=== PATIENT | male | born 1940 | race American Indian/Alaskan Native ===

== ENCOUNTER 2020-05-20 06:13 | Observation (INO) | payer MEDICARE ==
[2020-05-14 10:08] LABS: Hematocrit 38.2 % (35.5-45.6); Hemoglobin 12.6 gm/dl (11.8-15.2); Mean Corpuscular HGB Conc 33 % (32-34); Mean Corpuscular Volume 84 fl (84-94); Platelet Count 181 K/mm3 (140-440); Red Blood Count 4.57 M/mm3 (3.65-5.03); Red Cell Distribution Width 16.1 % (13.2-15.2)
[2020-05-14 10:25] LABS: Alanine Aminotransferase 13 units/L (7-56); Albumin 3.9 g/dL (3.9-5); BUN/Creatinine Ratio 13; Blood Urea Nitrogen 13 mg/dL (9-20); Calcium 8.6 mg/dL (8.4-10.2); Hemolysis Index 0
--- NOTE | 2020-05-14 10:28 | Anesthesia Consultation ---
Anesthesia Consult and Med Hx Date of service: 05/20/20 - Airway Anesthetic Teeth Evaluation: Dentures (full upper and lower) ROM Head & Neck: Adequate Mental/Hyoid Distance: Adequate Mallampati Class: Class III Intubation Access Assessment: Possibly Difficult - Pulmonary Exam CTA: Yes - Cardiac Exam Cardiac Exam: RRR - Pre-Operative Health Status ASA Pre-Surgery Classification: ASA3 Proposed Anesthetic Plan: General - Pulmonary Hx Smoking: Yes (quit 30yrs ago) Hx Respiratory Symptoms: No Hx Sleep Apnea: No - Cardiovascular System Hx Hypertension: Yes Hx Heart Attack/AMI: No Hx Percutaneous Transluminal Coronary Angioplasty (PTCA): No Hx Cardia Arrhythmia: No Hx Peripheral Vascular Disease: No (hx RLE DVT s/p IVC filter; off coumadin x several years) - Central Nervous System CVA: No (hx SDH 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
[~2020-05-20 06:13] MED LIST: LACTATED RINGERS 1,000 ML IV SCH
[2020-05-20] MEDS ORDERED: BACTERIOSTATIC SODIUM CHLORIDE 0.9% 30 ML VIAL INFILTRATI ONE (06:34)
--- NOTE | 2020-05-20 06:45 | Anesthesia Day of Surgery ---
Anesthesia Day of Surgery - Day of Surgery Patient Examined: Yes Patient H&P Reviewed: Yes Patient is NPO: Yes
[2020-05-20] MEDS ORDERED: GENTAMICIN/NS 80 MG/100 ML 100 ML IV SCH (07:30)
[2020-05-20] MEDS ORDERED: fentaNYL 100 MCG/2 ML INJ ONE (07:37)
[2020-05-20] MEDS ORDERED: propofoL 200 MG/20 ML VIAL IV ONE (07:37)
[2020-05-20] MEDS ORDERED: ePHEDrine SULFATE 50 MG/1 ML INJ ONE (07:54)
[2020-05-20] MEDS ORDERED: WATER FOR IRRIG STERILE 2000 ML IR ONE (08:00)
[2020-05-20] MEDS ORDERED: HYDROcodone/ACETAMINOPHEN 5-325 MG TAB PO PRN (08:25)
[2020-05-20] MEDS ORDERED: ONDANSETRON 4 MG/2 ML INJ ONE (09:04)
[2020-05-20] MEDS ORDERED: LIDOCAINE MPF (2%) 20 MG/1 ML VIAL 5 ML ONE (09:04)
[2020-05-20] MEDS ORDERED: MORPHINE 4 MG/1 ML INJ IV PRN (09:20)
[2020-05-20] MEDS ORDERED: NALOXONE 0.4 MG/1 ML INJ IV PRN (09:20)
--- NOTE | 2020-05-20 09:20 | Short Stay Summary ---
Short Stay Documentation Date of service: 05/20/20 - History H&P: obtained from office - Allergies and Medications Current Medications: Allergies lisinopril Adverse Reaction (Unknown, Verified 05/14/20 10:30) Unknown Penicillins Adverse Reaction (Verified 05/14/20 10:30) Rash sulfamethoxazole [From Sulfamethoxazole-Trimethoprim] Adverse Reaction (Verified 05/14/20 10:30) Rash trimethoprim [From Sulfamethoxazole-Trimethoprim] Adverse Reaction (Verified 05/14/20 10:30) Rash vancomycin Adverse Reaction (Verified 05/14/20 10:30) Rash Home Medications Medication Instructions Recorded Confirmed Last Taken Type Centrum Silver Men Tablet 1 tab PO DAILY 05/14/20 05/14/20 05/19/20 History Cholecalciferol (Vitamin D3) 1 cap PO DAILY 05/14/20 05/14/20 05/19/20 History Cyanocobalamin (Vitamin B-12) 1 tab PO DAILY 05/14/20 05/14/20 05/19/20 History Diclofenac-Misoprost 75-200 Tb 1 tab PO BID 05/14/20 05/14/20 05/19/20 History Docusate Calcium 100 mg PO DAILY 05/14/20 05/14/20 05/19/20 History Finasteride [Proscar] 5 mg PO QDAY 05/14/20 05/14/20 05/19/20 History Hydrochlorothiazide 25 mg PO DAILY 05/14/20 05/14/20 05/19/20 History Levothyroxine 0.15 mg PO DAILY 05/14/20 05/14/20 05/20/20 05:30 History Linzess 145 tab PO QDAY 05/14/20 05/14/20 05/19/20 History Potassium Chloride 1 tab PO BID 05/14/20 05/14/20 05/19/20 History Tamsulosin 0.4 mg PO DAILY 05/14/20 05/14/20 05/19/20 History amLODIPine 10 mg PO DAILY 05/14/20 05/14/20 05/20/20 05:30 History Active Medications Hydrocodone Bitart/Acetaminophen (Hydrocodone/Acetaminophen 5-325 Mg Tab) 2 each PO ONCE PRN PRN Reason: Pain, Moderate (4-6) Stop: 05/20/20 18:00 Lactated Ringer's (Lactated Ringers) 1,000 mls @ 100 mls/hr IV DIRECT NICA Stop: 05/20/20 23:59 Last Admin: 05/20/20 06:55 Dose: 100 mls/hr Documented by: Gentamicin Sulfate/Sodium Chloride (Gentamicin/Ns 80 Mg/100 Ml) 100 mls @ 200 mls/hr IV ONCE NICA Stop: 05/20/20 21:00 - Brief post op/procedure progress note Date of procedure: 05/20/20 Pre-op diagnosis: BPH, RETENTION Post-op diagnosis: same Procedure: CYSTO, TUR BLADDER NECK, GREENLIGHT LASER OF PROSTATE Anesthesia: YEHUDA Surgeon: RAVI HINTON Estimated blood loss: minimal Pathology: list (PROSTATE CHIPS) Specimen disposition: to lab Condition: stable - Hospital course Hospital course: DEVAUGHN BELL,POST OP INFO ON CHART - Disposition Disposition: DC-01 TO HOME OR SELFCARE Short Stay Discharge Plan Follow up with: JACKI MCGHEE [Other] - 7 Days
[2020-05-20] MEDS ORDERED: SODIUM CHLORIDE 0.9% 1000 ML 1,000 ML IV SCH (09:30)
[2020-05-20] MEDS ORDERED: POTASSIUM CHLORIDE PO SCH (10:00)
[2020-05-20] MEDS ORDERED: NON-FORMULARY EACH (Amlodipine 10 MG) PO SCH (10:00)
[2020-05-20] MEDS ORDERED: DOCUSATE CALCIUM 100 MG PO SCH (10:00)
[2020-05-20] MEDS ORDERED: NON-FORMULARY EACH (Hydrochlorothiazide 25 MG) PO SCH (10:00)
[2020-05-20] MEDS ORDERED: LINZESS PO SCH (10:00)
[2020-05-20] MEDS ORDERED: LEVOTHYROXINE 0.15 MG PO SCH (10:00)
--- NOTE | 2020-05-20 10:09 | XRay Report ---
Technique: Intraoperative fluoroscopic guidance was provided. Fluoroscopy time: 0.1 minutes. Fluoroscopy images: 2. Findings/Impression: Intraoperative fluoroscopic guidance for greenlight prostatectomy. Please see pr ocedure report for further details. Signer Name: Aden Cedeno MD Signed: 05/20/2020 10:04 AM Workstation Name: [id number]
[2020-05-20] MEDS ORDERED: SODIUM CHLORIDE IRRI 1000 ML 1,000 ML IR ONE (10:24)
[2020-05-20] MEDS: amLODIPine 10 MG TAB PO SCH ×2 (12:01→12:04)
[2020-05-20] MEDS: hydroCHLOROthiazide 25 MG TAB PO SCH (12:01)
[2020-05-20] MEDS: DOCUSATE SODIUM 100 MG CAP PO SCH (12:01)
[2020-05-20] MEDS: FINASTERIDE 5 MG TAB PO SCH (12:02)
--- NOTE | 2020-05-20 13:02 | Post Anesthesia Evaluation ---
- Post Anesthesia Evaluation Patient Participated: Yes Airway Patent: Yes Stable Respiratory Function: Yes Nausea/Vomiting: No Temp > 96.8F: Yes Pain Manageable: Yes Adequeate Hydration: Yes Anesthesia Complications: No
[2020-05-20] MEDS: HYDROcodone/ACETAMINOPHEN 5-325 MG TAB PO PRN ×2 (13:41→23:53)
--- NOTE | 2020-05-20 15:50 | Operative Report ---
PREOPERATIVE DIAGNOSES: Benign prostatic hypertrophy, urinary retention. POSTOPERATIVE DIAGNOSES: Benign prostatic hypertrophy, urinary retention. PROCEDURES: Cystoscopy, transurethral resection of bladder neck (median lobe), GreenLight laser ablation of the prostate. SURGEON: Jaspal Cavanaugh MD ANESTHESIA: General. ESTIMATED BLOOD LOSS: Minimal. FLUIDS: Crystalloid. COMPLICATIONS: No complications. INDICATIONS: This 79-year-old gentleman known to our service. Due to COVID, he did not want to come into the hospital, developed significant voiding dysfunction, was seen by Dr. Salinas in our group, underwent a UroLift procedure, developed retention. Despite medical management in additional to the UroLift, could not void spontaneously. We discussed ____. He was interested in that versus TURP or GreenLight. We did ____, was unable to urinate afterwards as well. At this point, he wants relief. Discussed TURP, GreenLight. He and his agreed to proceed. DESCRIPTION OF PROCEDURE: The patient was taken to the operative suite, placed in a supine position. After adequate general anesthesia, placed in a dorsal lithotomy position, prepped and draped in a sterile fashion. Pancystourethroscopy was performed with a 22-Afghan Storz cystoscope, no urethral abnormalities. Prostate displayed significant trilobar obstruction. His bladder significant trabeculation, unable to visualize the ureteral orifices bilaterally. Next, using a 27-Afghan resectoscope and loop, transurethral resection of the large median lobe was performed without difficulty. Chips were evacuated out with the TV Volume Wizard App evacuator, did see somewhat of a channel at this point, however, we then used the GreenLight ____, starting at 80 chavez going up to 100 chavez. Laser ablation of the lateral lobes were performed as well as coagulation of the median lobe as well. The patient tolerated the procedure well. Chips were evacuated out. A 24-Afghan 3-way catheter to Sharp's drip was placed. Rectal exam was benign. He was extubated and taken to recovery room. JOB# [id number] C/NTS
[2020-05-20] MEDS: GENTAMICIN/NS 80 MG/100 ML 100 ML IV SCH ×2 (17:26→23:41)
[2020-05-20] MEDS: SODIUM CHLORIDE 0.9% IRRIG SOLN 2000 ML IR SCH ×2 (20:52→23:43)
[2020-05-20] MEDS ORDERED: ZOLPIDEM 5 MG TAB PO PRN (21:00)
[2020-05-20] MEDS: POTASSIUM CHLORIDE ER 10 MEQ TAB PO SCH (23:41)
[2020-05-21] MEDS: SODIUM CHLORIDE 0.9% IRRIG SOLN 2000 ML IR SCH ×2 (02:27→05:30)
[2020-05-21] MEDS ORDERED: LEVOTHYROXINE 150 MCG TAB PO SCH (06:00)
--- NOTE | 2020-05-21 08:14 | Progress Note ---
Assessment and Plan nicolás heard home with cath Subjective Date of service: 05/21/20 Principal diagnosis: bph Objective - Constitutional Vitals: Vital Signs - 12hr 05/20/20 05/21/20 05/21/20 22:29 05:02 07:27 Temperature 98.3 F 98.6 F 98.0 F Pulse Rate 80 76 85 Respiratory 18 18 20 Rate Blood Pressure 137/60 117/49 166/78 O2 Sat by Pulse 96 91 97 Oximetry General appearance: Present: no acute distress - Neck Neck: supple - Respiratory Respiratory effort: normal Extremities: no ischemia - Gastrointestinal General gastrointestinal: Present: non-tender - Labs CBC & Chem 7: 05/14/20 09:32 05/14/20 09:32 Labs: Abnormal lab results 05/20/20 Range/Units 09:35 POC Glucose 128 H (70-105) mg/dL Medications & Allergies - Medications Allergies/Adverse Reactions: Allergies lisinopril Adverse Reaction (Unknown, Verified 05/14/20 10:30) Unknown Penicillins Adverse Reaction (Verified 05/14/20 10:30) Rash sulfamethoxazole [From Sulfamethoxazole-Trimethoprim] Adverse Reaction (Verified 05/14/20 10:30) Rash trimethoprim [From Sulfamethoxazole-Trimethoprim] Adverse Reaction (Verified 05/14/20 10:30) Rash vancomycin Adverse Reaction (Verified 05/14/20 10:30) Rash Home Medications: Home Medications Medication Instructions Recorded Confirmed Last Taken Type Centrum Silver Men Tablet 1 tab PO DAILY 05/14/20 05/14/20 05/19/20 History Cholecalciferol (Vitamin D3) 1 cap PO DAILY 05/14/20 05/14/20 05/19/20 History Cyanocobalamin (Vitamin B-12) 1 tab PO DAILY 05/14/20 05/14/20 05/19/20 History Diclofenac-Misoprost 75-200 Tb 1 tab PO BID 05/14/20 05/14/20 05/19/20 History Docusate Calcium 100 mg PO DAILY 05/14/20 05/14/20 05/19/20 History Finasteride [Proscar] 5 mg PO QDAY 05/14/20 05/14/20 05/19/20 History Hydrochlorothiazide 25 mg PO DAILY 05/14/20 05/14/20 05/19/20 History Levothyroxine 0.15 mg PO DAILY 05/14/20 05/14/20 05/20/20 05:30 History Linzess 145 tab PO QDAY 05/14/20 05/14/20 05/19/20 History Potassium Chloride 1 tab PO BID 05/14/20 05/14/20 05/19/20 History Tamsulosin 0.4 mg PO DAILY 05/14/20 05/14/20 05/19/20 History amLODIPine 10 mg PO DAILY 05/14/20 05/14/20 05/20/20 05:30 History Active Medications: Generic Name Dose Route Start Last Admin Trade Name Freq PRN Reason Stop Dose Admin Hydrocodone Bitart/Acetaminophen 2 each 05/20/20 09:20 05/20/20 23:53 Hydrocodone/Acetaminophen 5-325 Mg Tab PO 2 each Q4H PRN Administration Pain, Moderate (4-6) Amlodipine Besylate 10 mg 05/20/20 10:00 05/20/20 12:04 Amlodipine 10 Mg Tab PO Not Given DAILY [facility] Docusate Sodium 100 mg 05/20/20 10:00 05/20/20 12:01 Docusate Sodium 100 Mg Cap PO 100 mg DAILY NICA Administration Finasteride 5 mg 05/20/20 10:00 05/20/20 12:02 Finasteride 5 Mg Tab PO Not Given QDAY [facility] Hydrochlorothiazide 25 mg 05/20/20 10:00 05/20/20 12:01 Hydrochlorothiazide 25 Mg Tab PO 25 mg QDAY NICA Administration Sodium Chloride 1,000 mls @ 100 mls/hr 05/20/20 09:30 Nacl 0.9% 1000 Ml IV DIRECT NICA Levothyroxine Sodium 150 mcg 05/21/20 06:00 05/21/20 05:27 Levothyroxine 150 Mcg Tab PO 150 mcg DAILY@0600 [facility] Administration Miscellaneous Medication 145 tab 05/20/20 10:00 Linzess PO QDAY NICA Morphine Sulfate 4 mg 05/20/20 09:20 Morphine 4 Mg/1 Ml Inj IV Q4H PRN Pain , Severe (7-10) Naloxone HCl 0.1 mg 05/20/20 09:20 Naloxone 0.4 Mg/1 Ml Inj IV Q2MIN PRN Res Rate </= 8 or 02 SAT < 92% Potassium Chloride 10 meq 05/20/20 22:00 05/20/20 23:41 Potassium Chloride Er 10 Meq Tab PO 10 meq BID NICA Administration Sodium Chloride 2,000 ml 05/20/20 10:00 05/21/20 05:30 Sodium Chloride 0.9% Irrig Soln 2000 Ml IR 2,000 ml DIRECT NICA Administration Zolpidem Tartrate 5 mg 05/20/20 21:00 05/20/20 23:41 Zolpidem 5 Mg Tab PO 5 mg QHS PRN Administration Sleep
--- NOTE | 2020-05-21 08:15 | Discharge Summary ---
Short Stay Discharge Plan Activity: other (no straining ) Diet: low cholesterol, low salt Special Instructions: other (inc fluids ) Durable Medical Equipment Needed Upon Discharge: other (each zaidi care ) Follow up with: JACKI MCGHEE [Other] - 7 Days RAVI HINTON MD [Staff Physician] - 7 Days
--- NOTE | 2020-05-21 08:38 | Consultation ---
History of Present Illness - Reason for Consult Consult date: 05/20/20 - History of Present Illness 79-year-old male presents with significant past medical history of hypertension, BPH and urinary retention. Patient is s/p cystoscopy with TUR bladder neck, greenlight laser of prostate. Urology asked for consultation for management of hypertension during overnight hospital stay. Patient denies any chest pain or shortness of breath. Past History Past Medical History: hypertension Past Surgical History: No surgical history Social history: no significant social history Family history: no significant family history Medications and Allergies Allergies Allergy/AdvReac Type Severity Reaction Status Date / Time lisinopril AdvReac Unknown Unknown Verified 05/14/20 10:30 Penicillins AdvReac Rash Verified 05/14/20 10:30 sulfamethoxazole AdvReac Rash Verified 05/14/20 10:30 [From Sulfamethoxazole-Trimethoprim] trimethoprim AdvReac Rash Verified 05/14/20 10:30 [From Sulfamethoxazole-Trimethoprim] vancomycin AdvReac Rash Verified 05/14/20 10:30 Home Medications Medication Instructions Recorded Confirmed Last Taken Type Centrum Silver Men Tablet 1 tab PO DAILY 05/14/20 05/14/20 05/19/20 History Cholecalciferol (Vitamin D3) 1 cap PO DAILY 05/14/20 05/14/20 05/19/20 History Cyanocobalamin (Vitamin B-12) 1 tab PO DAILY 05/14/20 05/14/20 05/19/20 History Diclofenac-Misoprost 75-200 Tb 1 tab PO BID 05/14/20 05/14/20 05/19/20 History Docusate Calcium 100 mg PO DAILY 05/14/20 05/14/20 05/19/20 History Finasteride [Proscar] 5 mg PO QDAY 05/14/20 05/14/20 05/19/20 History Hydrochlorothiazide 25 mg PO DAILY 05/14/20 05/14/20 05/19/20 History Levothyroxine 0.15 mg PO DAILY 05/14/20 05/14/20 05/20/20 05:30 History Linzess 145 tab PO QDAY 05/14/20 05/14/20 05/19/20 History Potassium Chloride 1 tab PO BID 05/14/20 05/14/20 05/19/20 History Tamsulosin 0.4 mg PO DAILY 05/14/20 05/14/20 05/19/20 History amLODIPine 10 mg PO DAILY 05/14/20 05/14/20 05/20/20 05:30 History Active Meds: Active Medications Hydrocodone Bitart/Acetaminophen (Hydrocodone/Acetaminophen 5-325 Mg Tab) 2 each PO Q4H PRN PRN Reason: Pain, Moderate (4-6) Last Admin: 05/20/20 23:53 Dose: 2 each Documented by: Amlodipine Besylate (Amlodipine 10 Mg Tab) 10 mg PO DAILY [facility] Last Admin: 05/20/20 12:04 Dose: Not Given Documented by: Docusate Sodium (Docusate Sodium 100 Mg Cap) 100 mg PO DAILY [facility] Last Admin: 05/20/20 12:01 Dose: 100 mg Documented by: Finasteride (Finasteride 5 Mg Tab) 5 mg PO QDAY [facility] Last Admin: 05/20/20 12:02 Dose: Not Given Documented by: Hydrochlorothiazide (Hydrochlorothiazide 25 Mg Tab) 25 mg PO QDAY [facility] Last Admin: 05/20/20 12:01 Dose: 25 mg Documented by: Sodium Chloride (Nacl 0.9% 1000 Ml) 1,000 mls @ 100 mls/hr IV DIRECT [facility] Levothyroxine Sodium (Levothyroxine 150 Mcg Tab) 150 mcg PO DAILY@0600 [facility] Last Admin: 05/21/20 05:27 Dose: 150 mcg Documented by: Miscellaneous Medication (Linzess) 145 tab PO QDAY [facility] Morphine Sulfate (Morphine 4 Mg/1 Ml Inj) 4 mg IV Q4H PRN PRN Reason: Pain , Severe (7-10) Naloxone HCl (Naloxone 0.4 Mg/1 Ml Inj) 0.1 mg IV Q2MIN PRN PRN Reason: Res Rate </= 8 or 02 SAT < 92% Potassium Chloride (Potassium Chloride Er 10 Meq Tab) 10 meq PO BID [facility] Last Admin: 05/20/20 23:41 Dose: 10 meq Documented by: Sodium Chloride (Sodium Chloride 0.9% Irrig Soln 2000 Ml) 2,000 ml IR DIRECT NICA Last Admin: 05/21/20 05:30 Dose: 2,000 ml Documented by: Zolpidem Tartrate (Zolpidem 5 Mg Tab) 5 mg PO QHS PRN PRN Reason: Sleep Last Admin: 05/20/20 23:41 Dose: 5 mg Documented by: Review of Systems All systems: negative Exam - Constitutional Vitals: Temp Pulse Resp BP Pulse Ox 98.0 F 85 20 166/78 97 05/21/20 07:27 05/21/20 07:27 05/21/20 07:27 05/21/20 07:27 05/21/20 07:27 General appearance: Present: no acute distress, well-nourished - EENT Eyes: Present: PERRL ENT: hearing intact, clear oral mucosa - Neck Neck: Present: supple, normal ROM - Respiratory Respiratory effort: normal Respiratory: bilateral: CTA - Cardiovascular Heart Sounds: Present: S1 & S2. Absent: rub, click - Extremities Extremities: pulses symmetrical, No edema Peripheral Pulses: within normal limits - Abdominal General gastrointestinal: Present: soft, non-tender, non-distended, normal bowel sounds Male genitourinary: Present: normal - Integumentary Integumentary: Present: clear, warm, dry - Musculoskeletal Musculoskeletal: gait normal, strength equal bilaterally - Psychiatric Psychiatric: appropriate mood/affect, intact judgment & insight - Neurologic Neurologic: CNII-XII intact, moves all extremities Results - Labs CBC & Chem 7: 05/14/20 09:32 05/14/20 09:32 Labs: Abnormal lab results 05/20/20 Range/Units 09:35 POC Glucose 128 H (70-105) mg/dL Assessment and Plan BPH Urinary retention Hypertension 05/20/2020. Patient is status post cystoscopy, transurethral resection of bladder neck. Continue amlodipine for blood pressure. Monitor on telemetry. Anticipate discharge in a.m.
[2020-05-21] MEDS: DOCUSATE SODIUM 100 MG CAP PO SCH (10:43)
[2020-05-21] MEDS: amLODIPine 10 MG TAB PO SCH (10:43)
[2020-05-21] MEDS: hydroCHLOROthiazide 25 MG TAB PO SCH (10:43)
[2020-05-21] MEDS: FINASTERIDE 5 MG TAB PO SCH (10:43)
[2020-05-21] MEDS: POTASSIUM CHLORIDE ER 10 MEQ TAB PO SCH (10:43)
[2020-05-21 11:46] VITALS: BP 144/60
--- NOTE | 2020-05-21 11:46 | Progress Note ---
Assessment and Plan Assessment and plan: BPH Urinary retention Hypertension 05/20/2020. Patient is status post cystoscopy, transurethral resection of bladder neck. Continue amlodipine for blood pressure. Monitor on telemetry. Anticipate discharge in a.m. 05/21/2020. Patient reportedly to discharge today. We will sign off. History Interval history: No new issues overnight. Hospitalist Physical - Constitutional Vitals: Temp Pulse Resp BP Pulse Ox 98.4 F 78 18 144/60 95 05/21/20 10:52 05/21/20 10:52 05/21/20 10:52 05/21/20 10:52 05/21/20 10:52 General appearance: Present: no acute distress, well-nourished - EENT Eyes: Present: PERRL, EOM intact ENT: hearing intact, clear oral mucosa, dentition normal - Neck Neck: Present: supple, normal ROM - Respiratory Respiratory effort: normal Respiratory: bilateral: CTA - Cardiovascular Rhythm: regular Heart Sounds: Present: S1 & S2. Absent: gallop, rub - Extremities Extremities: no ischemia, No edema, Full ROM - Abdominal General gastrointestinal: soft, non-tender, non-distended, normal bowel sounds - Integumentary Integumentary: Present: clear, warm, dry - Neurologic Neurologic: CNII-XII intact, moves all extremities Results - Labs CBC & Chem 7: 05/14/20 09:32 05/14/20 09:32 Labs: Laboratory Last Values WBC 3.7 K/mm3 (4.5-11.0) L 05/14/20 09:32 RBC 4.57 M/mm3 (3.65-5.03) 05/14/20 09:32 Hgb 12.6 gm/dl (11.8-15.2) 05/14/20 09:32 Hct 38.2 % (35.5-45.6) 05/14/20 09:32 MCV 84 fl (84-94) 05/14/20 09:32 MCH 28 pg (28-32) 05/14/20 09:32 MCHC 33 % (32-34) 05/14/20 09:32 RDW 16.1 % (13.2-15.2) H 05/14/20 09:32 Plt Count 181 K/mm3 (140-440) 05/14/20 09:32 Sodium 137 mmol/L (137-145) 05/14/20 09:32 Potassium 4.0 mmol/L (3.6-5.0) 05/14/20 09:32 Chloride 100.5 mmol/L (98-107) 05/14/20 09:32 Carbon Dioxide 29 mmol/L (22-30) 05/14/20 09:32 Anion Gap 12 mmol/L 05/14/20 09:32 BUN 13 mg/dL (9-20) 05/14/20 09:32 Creatinine 1.0 mg/dL (0.8-1.3) 05/14/20 09:32 Estimated GFR > 60 ml/min 05/14/20 09:32 BUN/Creatinine Ratio 13 % 05/14/20 09:32 Glucose 114 mg/dL (75-100) H 05/14/20 09:32 POC Glucose 128 mg/dL (70-105) H 05/20/20 09:35 Calcium 8.6 mg/dL (8.4-10.2) 05/14/20 09:32 Magnesium 1.70 mg/dL (1.7-2.3) 05/21/20 02:25 Total Bilirubin 0.30 mg/dL (0.1-1.2) 05/14/20 09:32 AST 20 units/L (5-40) 05/14/20 09:32 ALT 13 units/L (7-56) 05/14/20 09:32 Alkaline Phosphatase 126 units/L (35-129) 05/14/20 09:32 Total Protein 6.7 g/dL (6.3-8.2) 05/14/20 09:32 Albumin 3.9 g/dL (3.9-5) 05/14/20 09:32 Albumin/Globulin Ratio 1.4 % 05/14/20 09:32 Coronavirus (PCR) Negative (Negative) 05/14/20 10:05 Blood Type O POSITIVE 05/20/20 06:55 Antibody Screen Negative 05/20/20 06:55 Vaughan/IV: Voiding Method Indwelling Catheter Active Medications - Current Medications Current Medications: Generic Name Dose Route Start Last Admin Trade Name Freq PRN Reason Stop Dose Admin Hydrocodone Bitart/Acetaminophen 2 each 05/20/20 09:20 05/20/20 23:53 Hydrocodone/Acetaminophen 5-325 Mg Tab PO 2 each Q4H PRN Administration Pain, Moderate (4-6) Amlodipine Besylate 10 mg 05/20/20 10:00 05/21/20 10:43 Amlodipine 10 Mg Tab PO 10 mg DAILY NICA Administration Docusate Sodium 100 mg 05/20/20 10:00 05/21/20 10:43 Docusate Sodium 100 Mg Cap PO 100 mg DAILY NICA Administration Finasteride 5 mg 05/20/20 10:00 05/21/20 10:43 Finasteride 5 Mg Tab PO 5 mg QDAY NICA Administration Hydrochlorothiazide 25 mg 05/20/20 10:00 05/21/20 10:43 Hydrochlorothiazide 25 Mg Tab PO 25 mg QDAY NICA Administration Sodium Chloride 1,000 mls @ 100 mls/hr 05/20/20 09:30 Nacl 0.9% 1000 Ml IV DIRECT NICA Levothyroxine Sodium 150 mcg 05/21/20 06:00 05/21/20 05:27 Levothyroxine 150 Mcg Tab PO 150 mcg DAILY@0600 N[facility] Administration Miscellaneous Medication 145 tab 05/20/20 10:00 Linzess PO QDAY N[facility] Morphine Sulfate 4 mg 05/20/20 09:20 Morphine 4 Mg/1 Ml Inj IV Q4H PRN Pain , Severe (7-10) Naloxone HCl 0.1 mg 05/20/20 09:20 Naloxone 0.4 Mg/1 Ml Inj IV Q2MIN PRN Res Rate </= 8 or 02 SAT < 92% Potassium Chloride 10 meq 05/20/20 22:00 05/21/20 10:43 Potassium Chloride Er 10 Meq Tab PO 10 meq BID NICA Administration Sodium Chloride 2,000 ml 05/20/20 10:00 05/21/20 05:30 Sodium Chloride 0.9% Irrig Soln 2000 Ml IR 2,000 ml DIRECT NICA Administration Zolpidem Tartrate 5 mg 05/20/20 21:00 05/20/20 23:41 Zolpidem 5 Mg Tab PO 5 mg QHS PRN Administration Sleep
== END 2020-05-21 15:00 | disposition home or self-care (01) ==
LOC: OR 06:13 → 3B-SURG 09:20
PROVIDERS: ADMIT Urology; ATTEND Urology
DX: N40.1 Benign prostatic hyperplasia with lower urinary tract symptoms (principal); Z20.822 Contact with and (suspected) exposure to COVID-19; R33.8 Other retention of urine; I10 Essential (primary) hypertension; E03.9 Hypothyroidism, unspecified; M19.90 Unspecified osteoarthritis, unspecified site; Z71.3 Dietary counseling and surveillance; Z87.440 Personal history of urinary (tract) infections; Z96.651 Presence of right artificial knee joint; Z98.890 Other specified postprocedural states; Z79.82 Long term (current) use of aspirin; Z79.899 Other long term (current) drug therapy
CPT/HCPCS: 36415; 52648; 74018; 80053; 82962; 83735; 85027; 86850; 86900; 86901; 88305; 93005; 96365; 96366; A4217; G0378; J1580; J2405; J2704; J3010; J7120; Q9967; U0003; 88307